=== PATIENT | female | born 1980 | race Caucasian/White ===

== ENCOUNTER 2019-10-14 23:23 | Inpatient (IN) ==
[2019-10-14 23:51] LABS: Bilirubin,Urine Small (Negative); Blood,Urine Large (Negative); Clarity,Urine Turbid (Clear); Color,Urine Dark Yellow (Yellow); Glucose,Urine (UA) Normal (Normal); Ketones,Urine 15 mg/dL (Negative); Leukocyte Esterase,Urine Large (Negative); Nitrite,Urine Positive (Negative); Protein,Urine >=300 mg/dL (Neg-Trace); Specific Gravity,Urine 1.022 (1.010-1.025); Urobilinogen,Urine Normal (Normal)
[2019-10-14 23:54] LABS: Bacteria,Urine Many per hpf (None-Few); RBC,Urine 50-100 per hpf (0-3); Squamous Epithelial Cell,Urine Many per lpf (None-Few); WBC,Urine TNTC per hpf (0-3)
[2019-10-15] MEDS ORDERED: *HR* FentaNYL (PF) 100 MCG/2 ML VIAL IVP ONE
[2019-10-15 00:07] LABS: Yeast,Urine Few per hpf (None Seen)
[2019-10-15] MEDS ORDERED: cefTRIAXone 1,000 MG in Water for inj. (sterile) 10 ML IVP ONE (00:14)
[2019-10-15] MEDS ORDERED: 0.9 % Sodium Chloride 1,000 ML IVC ONE ×2 (00:26→01:08)
[2019-10-15 00:42] LABS: Basophils % 0.2 %; Eosinophils % 0.2 %; Hematocrit 38.5 % (35.3-44.9); Hemoglobin 13.2 g/dL (11.5-15.4); Immature Granulocytes % 1.5 % (0-4); Lymphocytes % 6.8 %; Mean Corpuscular HGB Conc 34.3 g/dL (31.6-35.5); Mean Corpuscular Hemoglobin 29.8 pg (28.0-33.3); Mean Corpuscular Volume 86.9 fL (83.0-100.0); Monocytes # 0.9 K/mcL (0.0-1.3); Monocytes % 5.6 %; Neutrophils # 13.2 K/mcL (1.6-8.9); Platelet Count 144 K/mcL (140-400); Red Blood Count 4.43 M/mcL (3.82-4.97); Segmented Neutrophils % 85.7 %; White Blood Count 15.4 K/mcL (4.3-11.1)
[2019-10-15 01:01] LABS: Alanine Aminotransferase 229 Units/L (7-52); Albumin 3.6 g/dL (3.5-5.7); Albumin/Globulin Ratio 1.5 (1.1-2.2); Alkaline Phosphatase 180 Units/L (34-104); Aspartate Amino Transferase 93 Units/L (13-39); BUN/Creatinine Ratio 18 (6-26); Bilirubin,Direct 0.8 mg/dL (0.0-0.2); Bilirubin,Indirect 0.8 mg/dL (0.0-1.0); Bilirubin,Total 1.6 mg/dL (0.3-1.0); Blood Urea Nitrogen 14 mg/dL (6-20); Calcium 9.1 mg/dL (8.6-10.3); Carbon Dioxide 24 mEq/L (23-29); Chloride 101 mEq/L (98-107); Globulin 2.4 g/dL (2.4-3.5); Glucose 139 mg/dL (70-105); Osmolality,Calculated 283 (280-300); Potassium 3.7 mEq/L (3.5-5.1); Sodium 135 mEq/L (136-145); eGFR For African Americans > 60 (> 60); eGFR For Non-African Americans > 60 (> 60)
[2019-10-15 02:28] LABS: Hepatitis B Surface Antigen Nonreactive (Nonreactive)
[2019-10-15 02:56] LABS: Hepatitis B Core IgM Nonreactive (Nonreactive)
[2019-10-15 02:58] LABS: Hepatitis A Antibody IgM Nonreactive (Nonreactive)
[2019-10-15] MEDS ORDERED: Ondansetron 4 MG/2 ML VIAL IVP ONE ×2 (03:43)
[2019-10-15] MEDS ORDERED: Morphine Sulfate 2 MG/ML SYRINGE IVP ONE (03:43)
[2019-10-15 04:13] LABS: Hepatitis C Virus Antibody Reactive (Nonreactive)
[2019-10-15] MEDS ORDERED: Ketorolac 15 MG/ML VIAL IVP PRN (04:51)
[2019-10-15] MEDS: Ringers Solution, Lactated 1,000 ML IVC SCH ×2 (05:33→18:48)
[2019-10-15] MEDS: *HR* Heparin 5,000 UNIT/ML VIAL SQ SCH ×2 (05:34→18:49)
[2019-10-15] MEDS ORDERED: Ringers Solution, Lactated 1,000 ML IVC ONE ×3 (09:18→13:42)
[2019-10-15] MEDS: Nicotine 21 MG PATCH.TD24 TD SCH (09:29)
[2019-10-15] MEDS: *HR* Promethazine 25 MG/ML VIAL IVP PRN ×2 (09:48→17:21)
[2019-10-15] MEDS: *HR* OxyCODONE Immed Rel 5 MG TABLET PO PRN ×2 (14:30→18:49)
[2019-10-15 15:12] LABS: BUN/Creatinine Ratio 15 (6-26); Blood Urea Nitrogen 11 mg/dL (6-20); Calcium 7.9 mg/dL (8.6-10.3); Carbon Dioxide 25 mEq/L (23-29); Chloride 104 mEq/L (98-107); Glucose 89 mg/dL (70-105); Osmolality,Calculated 277 (280-300); Potassium 3.5 mEq/L (3.5-5.1); Sodium 134 mEq/L (136-145); eGFR For African Americans > 60 (> 60); eGFR For Non-African Americans > 60 (> 60)
[2019-10-15] MEDS: Acetaminophen 325 MG TABLET PO PRN (15:30)
[2019-10-15 16:01] LABS: Amphetamine Screen,Urine Positive ng/mL (Cutoff=1000); Barbiturate Screen,Urine Negative ng/mL (Cutoff=200); Benzodiazepines Screen,Urine Negative ng/mL (Cutoff=200); Cannabinoid Screen,Urine Negative ng/mL (Cutoff = 50); Cocaine Screen,Urine Negative ng/mL (Cutoff= 300); Opiate Screen,Urine Positive ng/mL (Cutoff=300); Phencyclidine Screen,Urine Negative ng/mL (Cutoff=25)
[2019-10-15 16:34] LABS: Enterococcus by PCR Not Detected (Not Detect); blaKPC Carbapenem-Resist Gene Not Detected (Not Detect); mecA Methicillin-Resist Gene Not Detected (Not Detect); vanA/B Vancomycin-Resist Genes Not Detected (Not Detect)
[2019-10-15 16:35] LABS: Acinetobacter baumannii by PCR Not Detected (Not Detect); Candida albicans by PCR Not Detected (Not Detect); Candida glabrata by PCR Not Detected (Not Detect); Candida krusei by PCR Not Detected (Not Detect); Candida parapsilosis by PCR Not Detected (Not Detect); Candida tropicalis by PCR Not Detected (Not Detect); Enterobacter cloacae Cmplx PCR Not Detected (Not Detect); Escherichia coli by PCR DETECTED (Not Detect); Klebsiella oxytoca by PCR Not Detected (Not Detect); Klebsiella pneumoniae by PCR Not Detected (Not Detect); Proteus by PCR Not Detected (Not Detect); Pseudomonas aeruginosa by PCR Not Detected (Not Detect); Serratia marcescens by PCR Not Detected (Not Detect); Staphylococcus aureus by PCR Not Detected (Not Detect); Staphylococcus by PCR Not Detected (Not Detect); Streptococcus agalactiae(B)PCR Not Detected (Not Detect); Streptococcus by PCR Not Detected (Not Detect); Streptococcus pneumoniae PCR Not Detected (Not Detect); Streptococcus pyogenes (A) PCR Not Detected (Not Detect)
[2019-10-15] MEDS: cefTRIAXone 2,000 MG in Water for inj. (sterile) 20 ML IVP SCH (22:38)
[2019-10-15] MEDS: Sennosides 8.6 MG TABLET PO SCH (22:39)
[2019-10-16] MEDS: *HR* OxyCODONE Immed Rel 5 MG TABLET PO PRN ×4 (05:13→21:21)
[2019-10-16] MEDS: *HR* Heparin 5,000 UNIT/ML VIAL SQ SCH ×2 (05:13→18:57)
[2019-10-16] MEDS: Ringers Solution, Lactated 1,000 ML IVC SCH ×3 (05:23→22:55)
[2019-10-16 07:08] LABS: Basophils % 0.3 %; Eosinophils # 0.1 K/mcL (0.0-0.6); Eosinophils % 1.7 %; Hematocrit 32.6 % (35.3-44.9); Hemoglobin 10.6 g/dL (11.5-15.4); Immature Granulocytes % 0.8 % (0-4); Lymphocytes # 0.9 K/mcL (0.6-4.6); Lymphocytes % 11.6 %; Mean Corpuscular HGB Conc 32.5 g/dL (31.6-35.5); Mean Corpuscular Hemoglobin 29.4 pg (28.0-33.3); Mean Corpuscular Volume 90.3 fL (83.0-100.0); Monocytes # 0.6 K/mcL (0.0-1.3); Monocytes % 7.7 %; Platelet Count 108 K/mcL (140-400); Red Blood Count 3.61 M/mcL (3.82-4.97); Red Cell Distribution Width 15.8 % (11.5-14.5); Segmented Neutrophils % 77.9 %; White Blood Count 7.7 K/mcL (4.3-11.1)
[2019-10-16 07:31] LABS: Albumin 2.6 g/dL (3.5-5.7); Albumin/Globulin Ratio 1.2 (1.1-2.2); Bilirubin,Direct 0.8 mg/dL (0.0-0.2); Bilirubin,Indirect 0.5 mg/dL (0.0-1.0); Bilirubin,Total 1.3 mg/dL (0.3-1.0); Globulin 2.1 g/dL (2.4-3.5); Total Protein 4.7 g/dL (6.4-8.9)
[2019-10-16 07:33] LABS: BUN/Creatinine Ratio 13 (6-26); Blood Urea Nitrogen 9 mg/dL (6-20); Calcium 7.8 mg/dL (8.6-10.3); Carbon Dioxide 24 mEq/L (23-29); Chloride 102 mEq/L (98-107); Glucose 136 mg/dL (70-105); Osmolality,Calculated 277 (280-300); Potassium 3.1 mEq/L (3.5-5.1); Sodium 133 mEq/L (136-145); eGFR For African Americans > 60 (> 60); eGFR For Non-African Americans > 60 (> 60)
[2019-10-16] MEDS: Sennosides 8.6 MG TABLET PO SCH ×2 (10:08→21:21)
[2019-10-16] MEDS: Nicotine 21 MG PATCH.TD24 TD SCH (10:08)
[2019-10-16] MEDS: *HR* Promethazine 25 MG/ML VIAL IVP PRN ×2 (10:09→17:24)
[2019-10-16] MEDS ORDERED: Ringers Solution, Lactated 1,000 ML IVC ONE (10:32)
[2019-10-16] MEDS: Ondansetron ODT 4 MG TAB.RAPDIS SL PRN (13:39)
[2019-10-16] MEDS: Acetaminophen 325 MG TABLET PO PRN (13:48)
[2019-10-16] MEDS: cefTRIAXone 2,000 MG in Water for inj. (sterile) 20 ML IVP SCH (22:45)
[2019-10-17 01:23] LABS: Basophils % 0.3 %; Eosinophils # 0.2 K/mcL (0.0-0.6); Eosinophils % 3.3 %; Hematocrit 31.8 % (35.3-44.9); Hemoglobin 10.5 g/dL (11.5-15.4); Immature Granulocytes % 0.7 % (0-4); Lymphocytes # 1.3 K/mcL (0.6-4.6); Lymphocytes % 23.3 %; Mean Corpuscular Hemoglobin 29.3 pg (28.0-33.3); Mean Corpuscular Volume 88.8 fL (83.0-100.0); Monocytes # 0.7 K/mcL (0.0-1.3); Monocytes % 11.7 %; Neutrophils # 3.5 K/mcL (1.6-8.9); Platelet Count 108 K/mcL (140-400); Red Blood Count 3.58 M/mcL (3.82-4.97); Red Cell Distribution Width 15.8 % (11.5-14.5); Segmented Neutrophils % 60.7 %; White Blood Count 5.7 K/mcL (4.3-11.1)
[2019-10-17 01:40] LABS: BUN/Creatinine Ratio 10 (6-26); Blood Urea Nitrogen 7 mg/dL (6-20); Calcium 7.8 mg/dL (8.6-10.3); Carbon Dioxide 23 mEq/L (23-29); Chloride 103 mEq/L (98-107); Glucose 119 mg/dL (70-105); Osmolality,Calculated 271 (280-300); Potassium 3.6 mEq/L (3.5-5.1); Sodium 131 mEq/L (136-145); eGFR For African Americans > 60 (> 60); eGFR For Non-African Americans > 60 (> 60)
[2019-10-17] MEDS: *HR* OxyCODONE Immed Rel 5 MG TABLET PO PRN ×3 (05:21→23:39)
[2019-10-17] MEDS: *HR* Heparin 5,000 UNIT/ML VIAL SQ SCH ×2 (05:22→18:10)
[2019-10-17] MEDS: Ringers Solution, Lactated 1,000 ML IVC SCH (08:41)
[2019-10-17] MEDS: 0.9 % Sodium Chloride 1,000 ML IVC SCH ×2 (09:10→23:35)
[2019-10-17] MEDS: Nicotine 21 MG PATCH.TD24 TD SCH (09:12)
[2019-10-17] MEDS: Sennosides 8.6 MG TABLET PO SCH ×2 (09:13→23:34)
[2019-10-17] MEDS: *HR* Promethazine 25 MG/ML VIAL IVP PRN ×2 (09:28→18:09)
[2019-10-17] MEDS ORDERED: 0.9 % Sodium Chloride 1,000 ML IVC ONE (10:49)
[2019-10-17] MEDS ORDERED: Bisacodyl 10 MG RECTAL SUPPOSITORY RC PRN (17:00)
[2019-10-17] MEDS: Acetaminophen 325 MG TABLET PO PRN (18:10)
[2019-10-17] MEDS: cefTRIAXone 2,000 MG in Water for inj. (sterile) 20 ML IVP SCH (23:34)
[2019-10-18 04:54] VITALS: BP 133/89
[2019-10-18 05:58] LABS: Basophils # 0.1 K/mcL (0.0-0.2); Basophils % 0.6 %; Eosinophils # 0.2 K/mcL (0.0-0.6); Eosinophils % 2.8 %; Hemoglobin 11.8 g/dL (11.5-15.4); Immature Granulocytes % 2.2 % (0-4); Lymphocytes # 1.7 K/mcL (0.6-4.6); Lymphocytes % 20.8 %; Mean Corpuscular HGB Conc 32.8 g/dL (31.6-35.5); Mean Corpuscular Hemoglobin 29.6 pg (28.0-33.3); Mean Corpuscular Volume 90.5 fL (83.0-100.0); Mean Platelet Volume 11.4 fL (9.4-12.4); Monocytes # 0.9 K/mcL (0.0-1.3); Monocytes % 11.2 %; Neutrophils # 5.1 K/mcL (1.6-8.9); Platelet Count 165 K/mcL (140-400); Red Blood Count 3.98 M/mcL (3.82-4.97); Red Cell Distribution Width 16.2 % (11.5-14.5); Segmented Neutrophils % 62.4 %; White Blood Count 8.2 K/mcL (4.3-11.1)
[2019-10-18 06:09] LABS: Alanine Aminotransferase 62 Units/L (7-52); Albumin 2.9 g/dL (3.5-5.7); Alkaline Phosphatase 189 Units/L (34-104); Aspartate Amino Transferase 20 Units/L (13-39); BUN/Creatinine Ratio 9 (6-26); Blood Urea Nitrogen 6 mg/dL (6-20); Calcium 7.9 mg/dL (8.6-10.3); Carbon Dioxide 24 mEq/L (23-29); Chloride 104 mEq/L (98-107); Globulin 2.8 g/dL (2.4-3.5); Glucose 105 mg/dL (70-105); Osmolality,Calculated 278 (280-300); Sodium 135 mEq/L (136-145); Total Protein 5.7 g/dL (6.4-8.9); eGFR For African Americans > 60 (> 60); eGFR For Non-African Americans > 60 (> 60)
[2019-10-18] MEDS: *HR* Heparin 5,000 UNIT/ML VIAL SQ SCH (06:51)
[2019-10-18] MEDS: Sennosides 8.6 MG TABLET PO SCH (08:26)
[2019-10-18] MEDS: Ondansetron ODT 4 MG TAB.RAPDIS SL PRN (08:26)
[2019-10-18] MEDS: Nicotine 21 MG PATCH.TD24 TD SCH (08:26)
== END 2019-10-18 13:19 | disposition home or self-care (01) | DRG 720 ==
LOC: EMEROOARM 23:23 → 3ANU 23:23
PROVIDERS: ADMIT Internal Medicine; ATTEND Internal Medicine